=== PATIENT | male | born 1950 | race Caucasian/White ===

== ENCOUNTER 2020-08-15 07:47 | Observation (INO) ==
--- NOTE | 2020-07-31 07:41 | ANES ---
Anesthesia Pre Procedure Eval HOME MEDICATIONS benazepril 10 mg tablet 10 mg PO DAILY 05/15/20 [Last Taken Unknown] glipizide 5 mg tablet 5 mg PO DAILY 05/15/20 [Last Taken Unknown] metformin 1,000 mg tablet 1,000 mg PO BID 05/15/20 [Last Taken Unknown] omeprazole 20 mg capsule,delayed release 20 mg PO DAILY 05/15/20 [Last Taken Unknown] simvastatin 40 mg tablet 40 mg PO DAILY 05/15/20 [Last Taken Unknown] zolpidem 5 mg tablet 5 mg PO HS PRN tab 07/10/20 [Last Taken Unknown] Allergies/Adverse Reactions: Allergies Allergy/AdvReac Type Severity Reaction Status Date / Time No Known Allergies Allergy Verified 07/10/20 08:56 - Planned Procedure Planned Procedure: Left Arthoplasty total Knee Medication List Reviewed:: Yes Allergies Verified: Yes Medical History (Last Reviewed 07/31/20 @ 07:37 by Sachin Anthony CRNA) Osteoarthritis of left knee (Chronic) Left knee pain Onset Date: ~2018 right [facility]-Dr[facility] Contreras Diabetes Onset Date: Unknown Hypocholesteremia Onset Date: Unknown Surgical History (Last Reviewed 07/31/20 @ 07:37 by Sachin Anthony CRNA) H/O total knee replacement Onset Date: 2014 right Family History (Last Reviewed 07/31/20 @ 07:38 by Sachin Anthony CRNA) Mother Diabetes Father Medical history unknown - Family Anesthesia History Family History:: no untoward family reactions to anesthesia, no familial bleeding tendencies, no family history of clotting disorders, no family history of premature - Airway/Neck/Teeth Within Normal Limits:: Yes Denture Type: Partial upper, Partial lower Neck Exam: full range of motion Mallampatti Score: 2 Thyromental (T-M) distance: > 6 cm Mandibulo Hyoid distance: > 3 cm - Respiratory Respiratory Physical: lungs clear Smoking Status: Former smoker - quit cigars 3 years ago Sleep Apnea currently treated: No Sleep Apnea by current assessment: No - Cardiovascular Cardiac History: hypertension, hyperlipidemia Tolerate Activity: Fair Heart Sounds: S1 & S2, Regular - Gastrointestinal NPO since: instructed after midnight except blood pressure medicines - Anesthesia Assessment and Plan ASA Class: PS, II Anesthesia Type Plan: Block - adductor canal for post op pain relief, Spinal
[~2020-08-15 07:47] MED LIST: MORPHINE SULFATE 15 MG TABLET.SA PO PRN; ROPIVACAINE/CLONIDIN/KETOROLAC 50 ML SYRINGE IJ PRN; TRANEXAMIC ACID 1,000 MG in NORMAL SALINE 100 ML IV PRN; ceFAZolin SODIUM 1 GM VIAL IV PRN
[2020-08-15] MEDS: RINGER'S SOLUTION,LACTATED 1,000 ML IV PRN ×3 (08:20→12:03)
[2020-08-15] MEDS ORDERED: ceFAZolin SODIUM 1 GM VIAL ONE (09:12)
[2020-08-15] MEDS ORDERED: ROPIVACAINE/CLONIDIN/KETOROLAC 50 ML SYRINGE IJ ONE (09:13)
[2020-08-15] MEDS ORDERED: NORMAL SALINE 20 ML VIAL ONE (09:32)
[2020-08-15] MEDS ORDERED: PROPOFOL VIAL IV ONE (09:32)
[2020-08-15] MEDS ORDERED: BUPIVACAINE HCL/PF 10 ML VIAL ONE (09:32)
[2020-08-15] MEDS ORDERED: MIDAZOLAM HCL/PF 5 MG/ML VIAL ONE (09:32)
[2020-08-15] MEDS ORDERED: BUPIVACAINE HCL/EPINEPHRINE 50 ML VIAL IJ ONE (09:38)
[2020-08-15] MEDS ORDERED: ACETAMINOPHEN 500 MG TABLET PO PRN (11:50)
[2020-08-15] MEDS ORDERED: ZOLPIDEM TARTRATE 5 MG TABLET PO PRN (11:50)
[2020-08-15] MEDS ORDERED: ONDANSETRON HCL/PF 2 MG/ML VIAL IV PRN (11:50)
[2020-08-15] MEDS ORDERED: diphenhydrAMINE HCL 50 MG/ML VIAL IV PRN (11:50)
[2020-08-15] MEDS ORDERED: RINGER'S SOLUTION,LACTATED 1,000 ML IV PRN (11:50)
[2020-08-15] MEDS ORDERED: MAG HYDROX/ALUMINUM HYD/SIMETH 30 ML UDC PO PRN (11:50)
[2020-08-15] MEDS ORDERED: MAGNESIUM HYDROXIDE 30 ML UDC PO PRN (11:50)
[2020-08-15] MEDS ORDERED: MORPHINE SULFATE 2 MG/ML DISP.SYRIN IV PRN (11:50)
--- NOTE | 2020-08-15 11:50 | OR ---
Operative Report - Dictated Report Narrative: Date: 08/15/2020 Preoperative diagnosis: Left knee degenerative joint disease. Postoperative diagnosis: Left knee degenerative joint disease. Procedure: Left total knee arthroplasty. Surgeon: Jalen Ryder M.D. Light Bulb Assembler: Kris Lehman PA-C (provided and essential set of skilled, educated hands that assisted with transfer, positioning, prepping, draping, manipulation, retraction, placement of jigs, injection, insertion of implants, irrigation, closure wounds, and dressings all of which could not be performed by the available surgical crew) Anesthesia: Spinal with regional block and local periarticular joint injection. Complications: None Specimens: Bone. Estimated blood loss: Minimal. Tourniquet time: 85 minutes at 300 millimeters of mercury. Retained implants: Depuy Attune size 6 left lugged cemented posterior stabilized femoral component. Size 6 fixed-bearing cemented tibial platform. 6 by 5 millimeter posterior stabilized cross-linked tibial insert. 38 millimeter medialized patella button. Indications: Mr. Navarro is a 69-year-old gentleman who has had longstanding left knee pain and arthrosis. This patient was followed in my clinic for period of time with significant complaints of left knee pain consistent with arthritic changes. He had failed conservative measures including, but not limited to, activity modification, passage of time, medications, and other conservative measures. Patient wished to proceed with surgical treatment. The risks, benefits, and alternatives were discussed in clinic. The risks of , blood clots, bleeding, infection, nerve/tendon blood vessel/ injury, malposition of components, intraoperative fracture, postoperative limited range of motion, persistent pain, failure of components, and need for additional procedures. Patient wished to proceed consent was obtained after answering all questions. Procedure: After marking the correct extremity on the floor, the patient was taken to the operating room. A timeout was performed. IV antibiotics consisting of Ancef were administered prior to the procedure. A regional followed by spinal anesthetic was induced by anesthesia, per my request, on the operative table with all bony prominences well-padded. Ruiz catheter was placed, and a bump was placed under the operative side buttock. SCDs and JUAN hose were utilized on the nonoperative leg. A well-padded tourniquet was applied to the operative thigh. The operative leg was then pre-scrubbed with alcohol, prepped, and draped in a standard sterile fashion. After exsanguinating the extremity with an Esmarch bandage, the tourniquet was inflated. After marking out the anterior knee for standard incision centered over the patella, the skin was incised and dissected down to the joint retinaculum. The joint retinaculum was marked out as well as the horizontal axis of the patella, and a standard medial parapatellar arthrotomy was then made. The most proximal aspect of the quadriceps tendon and the patella tendon insertion were protected from release. A partial synovectomy was performed as well as a resection of the infrapatellar fat pad. The distal femoral fat pad proximal to the trochlea was also resected using cautery. The soft tissues were elevated off the medial aspect of the proximal tibia using a Jimenez elevator ensuring that we did not transect the medial collateral ligament. Upon initial evaluation range of motion was approximately 0 degrees to 160 degrees of flexion. There were signs of advanced arthrosis in the medial and patellofemoral greater than lateral joint spaces. There were large marginal osteophytes which were removed with a rongeur. The knee was hyperflexed and the patella was tucked laterally. Protecting the surrounding soft tissues with Homans, an entry drill was placed down the femoral canal using Whitesides line for guidance into the entry point. The intramedullary femoral alignment ronald was utilized in order to cut the distal femur in 5 degrees of valgus resecting 10 millimeters of bone. Next the distal femur was sized to a size 6. A posterior referencing guide was utilized to place the distal femoral cutting block in 3 degrees of external rotation. This was pinned into place. The rotation was confirmed both visually and based on anatomic landmarks. The 4 in 1 cutting jig of the appropriate size was utilized in order to make all bony cuts. The polo wing was used to ensure no notching. Retractors were utilized in order to protect surrounding soft tissues. This cut did not result in any excessive notching. We then cut the box centered over the distal femur. This allowed for resection of the anterior and posterior cruciate ligaments. I then turned my attention to the preparation of the tibia. Using an extra medullary tibial alignment ronald, 3 millimeters of bone was resected off the medial articular surface. This was made perpendicular to the mechanical axis of the joint with the alignment ronald centered over the ankle mortise. The alignment ronald was checked and was noted to be parallel to the mechanical axis, centered over the medial one third of the tibial tubercle, paralleling the anterior surface of the tibia. We then turned our attention to the remaining meniscus and soft tissues. These were removed while protecting the surrounding ligaments and soft tissues. The marginal osteophytes off the anterior, posterior, medial, lateral aspects of the femur and tibia were removed. The tibia was sized out to a size 6. Next the tibia was drilled and punched in an externally rotated position. Next the trial femur and a series of tibial inserts were utilized in order to allow for full extension and maximal flexion. It was found that a 5 millimeter insert gave the best range of motion and stability at multiple flexion points as well as at full extension there was less than 2 mm of gapping both medially and laterally. There is minimal anterior translation with the knee at 90 degrees of flexion and no signs of being able to dislocate the knee. The patella was then prepared. The initial thickness was 21 millimeters. This was reamed down to 12 millimeters parallel to the anterior surface of the patella. It was sized out to a size 38 medialized patella button. This was then drilled and trialed. Without any medial restraint the patella tracked appropriately and did not sublux or dislocate. At this point, it was felt these were the appropriate sized implants, and all trials were removed. The standard periarticular joint injection consisting of ropivacaine, Toradol, and epinephrine were injected into the periarticular joint tissues. The bony surfaces were thoroughly irrigated with a pulsatile-suction saline irrigation device. A bone plug from the prior resected anterior chamfer cut was placed into the drill hole at the distal femur. The bony surfaces were then dried in preparation for placement of the implants. The cement was vacuum mixed per the geospatial engineer's instructions. The cement was placed on the dry bony surfaces and posterior aspect of the implants. The implants were impacted into place, removing all extruded cement. At this point anesthesia administered tranexamic acid per protocol intravenously. The knee was placed in extension with axial loading with the trial insert while the cement cured. Once the cement cured, all remaining extruded cement was removed. The knee was placed through a range of motion with the trial insert to ensure appropriate range of motion and stability. Final range of motion was approximately 0 to 150 degrees. The knee was again thoroughly irrigated with pulsatile saline lavage. The final polyethylene insert was then impacted into place ensuring no retained soft tissues. The remaining periarticular joint injection was injected. A medium Hemovac drain was placed exiting superior laterally. The knee was then placed over a triangle and the arthrotomy was closed with interrupted #1 Vicryl after thoroughly irrigating the joint. The deep and subcutaneous tissues were closed with interrupted 0 and 3-0 Vicryl respectively. Skin was closed with a running subcutaneous 3-0 Monocryl and Prineo Dermabond dressing. 4 x 4's, Sof-Rol, and a full leg Narendra wrap were applied. All sponge, needle, blade, and instrument counts were correct prior to closing the wounds. Postoperative condition: The patient was awoken and transferred to the postanesthesia care unit in stable condition. Plan is to be admitted to the inpatient medical/surgical floor postoperatively for 24 hours of IV antibiotics, physical therapy, occupational therapy, and medical comanagement. Patient will be weightbearing as tolerated with range of motion as tolerated. DVT prophylaxis will be with SCDs, JUAN hose, and pharmacological anticoagulation. Anticipated hospital stay is approximately 1-3 days.
[2020-08-15] MEDS ORDERED: LORazepam 0.5 MG TABLET PO PRN (11:51)
--- NOTE | 2020-08-15 12:25 | ANES ---
Post Anesthesia Discharge - Transfer of Care Transfer of Care handoff given to nurse: Yes - Discharge from PACU Discharge from PACU when meets criteria: Yes
--- NOTE | 2020-08-15 12:28 | ANES ---
Anesthesia Procedure Note Procedure Note: ANESTHESIA PROCEDURE NOTE Date of procedure: 08/15/2020. Time of procedure: 1005. Performed by: Jd Ramachandran CRNA Federal Agent: Palak Rosas RN . Preprocedure diagnosis: Left knee DJD requiring left total knee arthroplasty Post procedure diagnosis: Same. Procedure: Ultrasound-guided left adductor canal block Indications: Postoperative analgesia. Findings: Patient brought to operating room #4 and given a spinal anesthetic. The patient's left inner thigh was prepped with ChloraPrep. Ultrasound utilized to identify the saphenous nerve in the left adductor canal. A 20-gauge 4 inch regional block needle was advanced under ultrasound guidance until tip of needle was placed just proximally to saphenous nerve. 30 mL of 0.25% Marcaine with epinephrine 1 200,000 was injected with adequate spread of local anesthesia noted a around the nerve. Regional block needle was removed intact. EBL: Minimal. Fluids: N/A. Specimen: N/A. Post procedure condition: The patient tolerated the procedure well. No complications were noted. Thank you for this consultation Jd Ramachandran CRNA
[2020-08-15] MEDS: KETOROLAC TROMETHAMINE 15 MG/ML VIAL IV SCH ×3 (13:11→23:50)
[2020-08-15] MEDS: ceFAZolin SODIUM 1 GM in DEXTROSE 5 % IN WATER 100 ML IV SCH ×4 (13:11→20:10)
[2020-08-15] MEDS: oxyCODONE HCL/ACETAMINOPHEN 1 TAB TABLET PO PRN ×2 (16:05→20:09)
[2020-08-15] MEDS: MORPHINE SULFATE 15 MG TABLET.SA PO SCH (20:21)
[2020-08-15] MEDS ORDERED: SIMVASTATIN 40 MG TABLET PO SCH (21:00)
[2020-08-15] MEDS ORDERED: SENNOSIDES/DOCUSATE SODIUM 1 TAB TABLET PO SCH (21:00)
[2020-08-16] MEDS: oxyCODONE HCL/ACETAMINOPHEN 1 TAB TABLET PO PRN ×3 (00:10→11:20)
[2020-08-16] MEDS: ceFAZolin SODIUM 1 GM in DEXTROSE 5 % IN WATER 100 ML IV SCH ×2 (01:38)
[2020-08-16 06:18] LABS: Hematocrit 35.1 % (42.0-52.0); Hemoglobin 11.5 gm/dL (13.5-18.0); Mean Cell Volume 94.1 fl (78-100); Mean Corpuscular Hemoglobin 30.8 pg (27-31); Mean Corpuscular Hgb Conc 32.8 g/dl (32-36); Mean Platelet Volume 9.6 fl (8-11.3); Platelet Count 225 K/mm3 (150-450); Red Blood Count 3.73 M/mm3 (4.7-6.0); Red Cell Distribution Width 11.9 % (11.5-14.0); White Blood Count 9.6 K/mm3 (4.0-10.5)
[2020-08-16 06:26] LABS: Anion Gap 10.1 mmol/L (6.8-13.8); BUN/Creatinine Ratio 14.2 (9.0-21.6); Calcium * 7.7 mg/dL (7.9-10.9); Estimated Creat Clear 68.1; Potassium 4.1 mmol/L (3.4-4.6)
[2020-08-16] MEDS: KETOROLAC TROMETHAMINE 15 MG/ML VIAL IV SCH (06:45)
[2020-08-16] MEDS ORDERED: PANTOPRAZOLE SODIUM 20 MG TABLET.DR PO SCH (07:00)
[2020-08-16] MEDS ORDERED: ENALAPRIL MALEATE 5 MG TABLET PO SCH (09:00)
[2020-08-16] MEDS ORDERED: glipiZIDE 5 MG TABLET PO SCH (09:00)
[2020-08-16] MEDS: MORPHINE SULFATE 15 MG TABLET.SA PO SCH (09:09)
--- NOTE | 2020-08-16 09:54 | DS ---
(1) Status post left knee replacement Problem: Acute (2) Diabetes mellitus Problem: Chronic (3) Anxiety Problem: Chronic (4) GERD (gastroesophageal reflux disease) Problem: Chronic (5) Hyperlipidemia Problem: Chronic Date of Discharge:: 08/16/20 Hospital Course: Mr. Navarro was admitted to the floor after undergoing left total knee arthroplasty. Tolerated this well. Was admitted to the floor postoperatively for 24 hours of IV antibiotics, pain control, medical comanagement, and occupational and physical therapy. OT and PT were consulted to assist with activities of daily living and ambulation. Was made weightbearing as tolerated with range of motion as tolerated. Pain was initially controlled with IV regimen. This was transitioned to oral once tolerating a by mouth intake. Was resumed on home diet and medications. A Ruiz catheter was inserted in the operating room which was discontinued by postoperative day 1. A drain was placed intraoperatively into the knee which was discontinued on postoperative day 1. Lovenox, SCDs, and JUAN hose were utilized for DVT prophylaxis. Vital signs remained stable to the hospital course. Labs were obtained which showed a final hemoglobin of 11.5 grams. BMP was reviewed and was stable. Physical examination throughout the hospital course showed an extremity that had sensation that was intact to light touch, palpable pulses, a benign wound, motor intact to the toes, ankle, and knee. Knee range of motion was approximately 5 degrees to 50 degrees. Once an oral pain regimen was tolerated and physical therapy goals were met, it was felt that they were stable for discharge to home. Instructions: Continue with weightbearing as tolerated and range of motion as tolerated. It is okay to shower and get the wound wet as long as there is no drainage from the wound. Do not bathe or soak the wound. If there is any drainage from the wound keep the wound clean and dry and cover with dry gauze and tape. Change every 2- 3 days as needed if there is any drainage. Cover wound while showering if there is any drainage. Continue with physical therapy. Resume home diet. Report any fever over 101.5 Fahrenheit, uncontrolled pain, increased drainage, foul odor of drainage, new or increased calf pain or shortness of breath, or any other significant complaints. A 325mg daily aspirin will be started after finishing anticoagulation if not allergic. Continue with JUAN hose on the operative extremity until instructed otherwise. No driving until instructed otherwise. Follow up in approximately 2-3 weeks. Procedures Performed: see notes below List Procedures: left total knee arthroplasty Results and Findings: Lab Pending Results 08/16/20 06:15: WBC 9.6, RBC 3.73 L, Hgb 11.5 L, Hct 35.1 L, MCV 94.1, MCH 30.8, MCHC 32.8, RDW 11.9, Plt Count 225, MPV 9.6 08/16/20 06:15: Sodium 133, Plasma Sodium 134, Potassium 4.1, Chloride 101, Carbon Dioxide 26.0, Anion Gap 10.1, BUN 15, Creatinine 1.06, Est GFR (Non-Af Amer) 73, BUN/Creatinine Ratio 14.2, Random Glucose 176 H, Calcium 7.7 L Disposition: Home self-care Condition: Good Discharge Activity: Activity as tolerated, Weight bearing Discharge Diet: Consistent carbs Referrals: Elle Pacheco ARNP [Primary Care Provider] - Additional Patient Instructions (free text): Physical Therapy at [facility] in [place] on WednesdayAugust 19 at 10:00am. Please fax demographics and PT order to fax# [phone]. Follow up [facility] Orthopedic office appointment on WednesdaySeptember 04 at 9:30am. Prescriptions (Any new or edited meds): Enoxaparin Sodium [Lovenox] 40 mg SC Q24H #7 disp.syrin Transmission Status: Received by [facility] #[id number] Morphine Sulfate [Ms Contin] 15 mg PO Q12H #10 tablet.sa Transmission Status: Received by [facility] #[id number] oxyCODONE HCL/ACETAMINOPHEN [Percocet 5 MG/325 MG] 1 - 2 tab PO Q4H PRN #50 tab PRN Reason: Moderate Pain (Pain Scale 4-6) Transmission Status: Received by [facility] #[id number] Sennosides/Docusate Sodium [Senokot-S] 2 tab PO HS #60 tab Transmission Status: Received by [facility] #[id number] Complete Home Medications List: Complete Home Medication List: benazepril 10 mg tablet 10 mg PO DAILY 05/15/20 glipizide 5 mg tablet 5 mg PO DAILY 05/15/20 metformin 1,000 mg tablet 1,000 mg PO BID 05/15/20 omeprazole 20 mg capsule,delayed release 20 mg PO DAILY 05/15/20 simvastatin 40 mg tablet 40 mg PO DAILY 05/15/20 LORazepam [Ativan] 0.5 mg PO HS PRN 07/31/20 Sildenafil Citrate [Viagra] 50 mg PO PRN PRN 07/31/20 Enoxaparin Sodium [Lovenox] 40 mg SC Q24H #7 disp.syrin 08/16/20 Morphine Sulfate [Ms Contin] 15 mg PO Q12H #10 tablet.sa 08/16/20 Sennosides/Docusate Sodium [Senokot-S] 2 tab PO HS #60 tab 08/16/20 oxyCODONE HCL/ACETAMINOPHEN [Percocet 5 MG/325 MG] 1 - 2 tab PO Q4H PRN #50 tab 08/16/20 Amb Orders for Discharge: PT Evaluation and Treatment* Facility: [facility], Location: Rehabilitation Services
[2020-08-16] MEDS ORDERED: ENOXAPARIN SODIUM 40 MG/0.4 ML SYRG SC SCH (10:50)
[2020-08-16 14:12] VITALS: BP 139/75
== END 2020-08-16 12:09 | disposition home or self-care (01) ==
LOC: MS 07:47 → SUR 07:47 → EDSTATUS 11:00
PROVIDERS: ADMIT Orthopaedic Surgery; ATTEND Orthopaedic Surgery